=== PATIENT | male | born 1990 | race Asian ===

== ENCOUNTER 2016-12-12 18:23 | Emergency (ER) | payer OTHER ==
[~2016-12-12] VITALS: Ht 165.1 cm; Wt 74.8 kg
[2016-12-12 18:55] VITALS: BP 149/84; TEMP 99.5
== END 2016-12-12 18:58 | disposition home or self-care (01) ==
LOC: ED 18:23
DX: J06.9 Acute upper respiratory infection, unspecified (principal)
CPT/HCPCS: 99282

== ENCOUNTER 2018-05-03 19:27 | Emergency (ER) | payer OTHER ==
[~2018-05-03] VITALS: Ht 165.1 cm; Wt 72.6 kg
[2018-05-03 20:52] LABS: PLATELET COUNT 265 K/uL (142-355)
[2018-05-03 22:05] VITALS: BP 132/80; TEMP 98.1
== END 2018-05-03 22:08 | disposition home or self-care (01) ==
LOC: ED 19:27
PROVIDERS: Family Medicine
DX: K52.9 Noninfective gastroenteritis and colitis, unspecified (principal); F19.10 Other psychoactive substance abuse, uncomplicated
CPT/HCPCS: 36415; 80053; 80307; 80320; 81000; 82150; 83690; 85027; 96361; 96374; 99284; J2405

== ENCOUNTER 2019-01-19 18:45 | Emergency (ER) | payer OTHER ==
[~2019-01-19] VITALS: Ht 167.6 cm; Wt 72.6 kg
[2019-01-19 20:07] VITALS: BP 124/76; TEMP 98.6
== END 2019-01-19 20:07 | disposition home or self-care (01) ==
LOC: ED 18:45
DX: N34.2 Other urethritis (principal)
CPT/HCPCS: 81000; 87490; 87590; 96372; 99283; J0696